=== PATIENT | male | born 1935 | race Caucasian/White ===

== ENCOUNTER 2017-03-09 17:24 | Inpatient (IN) | payer OTHER ==
[~2017-03-09] VITALS: Ht 182.9 cm; Wt 105.6 kg
[2017-03-09 17:29] VITALS: BP 121/74
[2017-03-09 17:59] LABS: ABSOLUTE NEUTROPHILS 7.4 thou/uL (1.4-8.2); BASOPHILS 0.4 % (0.0-2.0); EOSINOPHILS 1.6 % (0.0-3.0); HEMATOCRIT 43.2 % (42.0-52.0); MCH 29.8 pg (26.0-34.0); MCHC 34.7 g/dL (28.0-37.0); MCV 85.9 fL (80.0-100.0); MONOCYTES 7.6 % (1.0-8.0); PLATELET COUNT 167 thou/uL (150-400); POLYS 68.4 % (36.0-66.0); RBC 5.03 mil/uL (4.50-6.00); RDW 14.2 % (10.5-14.5); WBC 10.7 thou/uL (4.0-11.0)
[2017-03-09 18:04] LABS: CALCIUM 9.7 mg/dL (8.5-10.1); CREATININE 1.4 mg/dL (0.7-1.3); POTASSIUM 3.8 mmol/L (3.5-5.1)
[2017-03-09 18:10] LABS: ALBUMIN 3.6 g/dL (3.4-5.0); TOTAL BILIRUBIN 0.9 mg/dL (<0.1-1.0); TOTAL PROTEIN 7.3 g/dL (6.4-8.2)
[2017-03-09 18:20] LABS: MANUAL DIFF NO
[2017-03-09] MEDS ORDERED: NORTRIPTYLINE H10 M1 PO (18:55)
[2017-03-09] MEDS ORDERED: HYDROCHLOROTHIA25 M2 PO (18:55)
[2017-03-09] MEDS ORDERED: FINASTERIDE5 MG PO (18:55)
[2017-03-09] MEDS ORDERED: SIMVASTATIN40 MG PO (18:56)
[2017-03-09 19:16] LABS: URINE BILIRUBIN NEGATIVE (Negative); URINE BLOOD 2+ (Negative); URINE COLOR YELLOW; URINE GLUCOSE-RANDOM* NEGATIVE (Negative); URINE KETONES NEGATIVE (Negative); URINE NITRITE POSITIVE (Negative); URINE PROTEIN (DIPSTICK) NEGATIVE (Negative); URINE SPECIFIC GRAVITY 1.015 (1.005-1.035); URINE UROBILINOGEN 0.2 E.U./dl (0.2-1.0)
[2017-03-09 19:24] LABS: BACTERIA >30 Many /HPF (None Seen); CASTS None Seen /LPF (None Seen); CRYSTALS None Seen /LPF (None Seen); SQUAMOUS None Seen /LPF (0-3); URINE RBC 3-10 Few /HPF (0-2); URINE WBC >25 Many /HPF (0-5)
[2017-03-09 21:51] VITALS: BP 141/68
[2017-03-09 22:45] VITALS: BP 144/68
[2017-03-10] MEDS ORDERED: ASPIR 8181 MG PO (01:31)
[2017-03-10 04:49] VITALS: BP 135/82
[2017-03-10 06:18] LABS: CALCIUM 8.9 mg/dL (8.5-10.1); CREATININE 1.3 mg/dL (0.7-1.3); POTASSIUM 3.9 mmol/L (3.5-5.1)
[2017-03-10 07:25] VITALS: BP 132/64
[2017-03-10 15:30] VITALS: BP 108/59
[2017-03-10 20:27] VITALS: BP 125/53
[2017-03-11 07:30] VITALS: BP 128/72
[2017-03-11] MEDS ORDERED: RAMIPRIL10 MG PO (08:20)
[2017-03-11] MEDS ORDERED: CIPRO500 MG PO (12:41)
[2017-03-11 12:44] VITALS: BP 128/72
== END 2017-03-11 13:42 | disposition home or self-care (01) | DRG 682 ==
LOC: ER 17:24 → 4S 19:33 → EROBS 19:33 → 4S 22:55
PROVIDERS: Nurse Practitioner Acute Care; Nurse Practitioner Family
DX: N17.9 Acute kidney failure, unspecified (principal); K85.90 Acute pancreatitis without necrosis or infection, unspecified; N39.0 Urinary tract infection, site not specified; I10 Essential (primary) hypertension; B96.20 Unspecified Escherichia coli [E. coli] as the cause of diseases classified elsewhere; E86.0 Dehydration; F80.82 Social pragmatic communication disorder; Z96.653 Presence of artificial knee joint, bilateral; E78.5 Hyperlipidemia, unspecified; G47.33 Obstructive sleep apnea (adult) (pediatric); Z79.899 Other long term (current) drug therapy; Z95.1 Presence of aortocoronary bypass graft
CPT/HCPCS: 10195